=== PATIENT | female | born 1960 | race Caucasian/White ===

== ENCOUNTER 2025-07-31 12:24 | Outpatient (CLI) | payer MEDICARE, BC, SELFPAY ==
--- NOTE | 2025-07-31 06:00 | DI.RAD_ITS ---
Exam(s) XR PAIN CLINIC LUMBAR SP 2V EXAM: XR PAIN CLINIC LUMBAR SP 2V CLINICAL HISTORY: DX: Lumbar Spondylosis TECHNIQUE: 2D and realtime digital imaging was performed. CONTRAST MATERIAL: Refer to procedure report. COMPARISON: No exams were available for comparison FINDINGS: Fluoroscopy was provided for Dr. Mckeon during the performance of a lumbar medial branch block. Please refer to the procedure report for complete details. Ka,r=16.5 mGy IMPRESSION: RADIATION DOSE DELIVERED: 0.0 0.0 0
[2025-07-31 12:42] VITALS: BP 150/71; PULSE 83; RESP 18; TEMP 36.4; O2SAT 94
[2025-07-31 13:36] VITALS: BP 166/82; PULSE 79; RESP 16; O2SAT 94
[2025-07-31] MEDS: Bupivacaine 0.5% Pres-Free 10 ML VIAL IJ (13:39)
--- NOTE | 2025-07-31 13:40 | PDOC.PAIN_ITS ---
Date of service: 07/31/25 Time of Service: 13:40 Pain Managment Procedure Note Procedure Note Procedure Note: PROCEDURE NOTE Bilateral Lumbar Medial Branch Blocks Date of Service: July 31, 2025 Patient: Latonya Colón Provider: Yuri Mckeon DO, MPH Latonya Colón [facility] lumbar medial branch blocks. Pre-operative diagnosis: Lumbar Spondylosis without Myelopathy ICD-10 M47.816 Post-operative diagnosis: Same Pre-procedure pain: VAS= 7/10 COMMENTS: She was previously evaluated in our clinic. Her symptoms are unchanged Latonya was interviewed and the medical records were reviewed. There were no medical, pharmacologic, radiographic or other structural contraindications to attempting fluoroscopically guided local anesthetic lumbar medial branch blocks. Risks and potential side effects were discussed. I also discussed the potential benefit(s) of the procedure with Latonya, and voiced concerns were addressed. After Latonya was completely informed about the procedure, the printed consent form was signed. A standard time-out procedure was performed. Latonya was placed in the prone position on the fluoroscopy table. Automated blood pressure cuff and pulse oximeter were applied. The skin entry points for approaching the anatomic target points of the segmental medial branches of bilateral L3,L4,L5 were identified with fluoroscopy and marked. The skin at the target site area was thoroughly prepared with Chlorhexadine. The skin was then draped. Next, a 25 gauge 3.5 spinal needle was placed under fluoroscopic g uidance down on to the target point (the articular pillar) for each respective segmental medial branch. Position was confirmed in A/P and lateral views. Aspiration revealed no blood or clear fluid. Next, 0.25ml of omnipaque 240 was injected at each level. No contrast following a vascular or neural pattern was visualized under continuous fluoroscopy. Next, 0.25 ml of preservative-free 0.5% bupivicaine was injected at each level. There was no unusual discomfort expressed by Latonya. The needles were withdrawn without difficulty. (49 mls of Omnipaque was wasted) Latonya was observed and was without hemodynamic, neurologic, or allergic reactions. Fluoroscopic images were digitally archived. Provacative testing using the Modified Vee's facet loading test- Left side Right Side Directly before the block VAS (0-10) = 7/10 VAS (0-10) = 7/10 Five minutes after the block VAS (0-10) = 0/10 VAS (0-10) = 0/10 Percentage relief obtained with this diagnostic block 100% 100% Any improved physical functioning directly after the blocks? Able to move her low back with ease. Follow up plans and appointments were discussed with Latonya. Latonya was instructed to keep careful note of how the usual pain was modified by these injections. Specifically, to keep a pain diary for the next 4 hours using a numeric pain scale of 0-10 and report these results. Post procedure instruction was given as documented in the nursing documentation and having met discharge criteria, the patient was [facility]. Based on the medial branches blocked today, if they patient has adequate relief and we are able to proceed to radiofrequency ablation, the treatment should result in the denervation of the bilateral L4-L5 and L5-S1 facet joints. We would expect to denervate a total of 4 facets during the radiofrequency ablation. COMMENTS: No apparent complications. Post-procedure pain: VAS= 0/10 Latonya will call back with 0-4 hour post-procedure pain scores. I personally performed the entire procedure. YURI MCKEON DO, MPH ABPM&R-subspecialty board certification in Pain Medicine [facility] Coding Conscious Sedation used for procedure: No CPT Codes: LMBB (includes Fluoro) Lumbar/Sacral, 2nd lvl - 09003 ([id number] ~G) LMBB (includes Fluoro) Lumbar/Sacral, single lvl *BILATERAL* - [id number] ([id number]~G5) Additional Codes: Date of Service () Diagnoses: lumbosacral spondylosis without myelopathy
[2025-07-31] MEDS: Omnipaque 240 MG/ML 50 ML BTL IJ (13:42)
== END 2025-07-31 12:25 | disposition home or self-care (01) ==
LOC: PC 12:25
PROVIDERS: PCP Family Medicine; Visit Provider Preventive Medicine Occupational Medicine
DX: M54.50 Low back pain, unspecified (principal); M47.816 Spondylosis without myelopathy or radiculopathy, lumbar region
CPT/HCPCS: 64493; 64494; 72100; J0665; Q9967

== ENCOUNTER 2025-08-28 09:55 | Outpatient (CLI) | payer MEDICARE, BC, SELFPAY ==
[2025-08-28] VITALS (7 sets, daily range): BP systolic 143–187; BP diastolic 75–102; PULSE 64–74; RESP 13–24; TEMP 37.2; O2SAT 93–96
--- NOTE | 2025-08-28 10:42 | PDOC.PAIN ---
Date of service: 08/28/25 Time of Service: 10:42 Pain Managment Procedure Note Procedure Note Procedure Note: PROCEDURE NOTE Bilateral Lumbar Medial Branch Blocks #2 Date of Service: August 28, 2025 Patient: Latonya Colón Provider: Yuri Mckeon DO, MPH Latonya Colón has been referred to the [facility] for lumbar medial branch blocks. Pre-operative diagnosis: Lumbar Spondylosis without Myelopathy ICD-10 M47.816 Post-operative diagnosis: Same Pre-procedure pain: VAS= 10/10 COMMENTS: She did very well with her first blocks and her pain did return shortly there after. Pepe was interviewed and the medical records were reviewed. There were no medical, pharmacologic, radiographic or other structural contraindications to attempting fluoroscopically guided local anesthetic lumbar medial branch blocks. Risks and potential side effects were discussed. I also discussed the potential benefit(s) of the procedure with Latonya, and voiced concerns were addressed. After Latonya was completely informed about the procedure, the printed consent form was signed. A standard time-out procedure was performed. Latonya was placed in the prone position on the fluoroscopy table. Automated blood pressure cuff and pulse oximeter were applied. The skin entry points for approaching the anatomic target points of the segmental medial branches of bilateral L3,L4,L5 were identified with fluoroscopy and marked. The skin at the target site area was thoroughly prepared with Chlorhexadine. The skin was then draped. Next, a 25 gauge 3.5 spinal needle was placed under fluoroscopic guidance down on to the target point (the articular pillar) for each respective segmental medial branch. Position was confirmed in A/P and lateral views. Aspiration revealed no blood or clear fluid. Next, 0.25ml of omnipaque 240 was injected at each level. No contrast following a vascular or neural pattern was visualized under continuous fluoroscopy. Next, 0.25 ml of preservative-free 0.5% bupivicaine was injected at each level. There was no unusual discomfort expressed by Latonya. The needles were withdrawn without difficulty. (49 mls of Omnipaque was wasted) Latonya was observed and was without hemodynamic, neurologic, or allergic reactions.? Fluoroscopic images were digitally archived. Provacative testing using the Modified Vee's facet loading test- Left side Right Side Directly before the block VAS (0-10) = 10/10 VAS (0-10) = 10/10 Five minutes after the block VAS (0-10) = 2/10 VAS (0-10) = 2/10 Percentage relief obtained with this diagnostic block 80% 80% Any improved physical functioning directly after the blocks? Able to move her low back with minimal pain. Follow up plans and appointments were discussed with Latonya. Latonya was instructed to keep careful note of how the usual pain was modified by these injections. Specifically, to keep a pain diary for the next 4 hours using a numeric pain scale of 0-10 and report these results. Post procedure instruction was given as documented in the nursing documentation and having met discharge criteria, the patient was [facility] from the [facility]. Based on the medial branches blocked today, if they patient has adequate relief and we are able to proceed to radiofrequency ablation, the treatment should result in the denervation of the bilateral L4-L5 and L5-S1 facet joints. We would expect to denervate a total of 4 facets during the radiofrequency ablation. COMMENTS: No apparent complications. Post-procedure pain: VAS= 2/10 Latonya will call back with 0-4 hour post-procedure pain scores. I personally performed the entire procedure. YURI MCKEON DO, MPH ABPM&R-subspecialty board certification in Pain Medicine [facility] Coding Conscious Sedation used for procedure: No CPT Codes: LMBB (includes Fluoro) Lumbar/Sacral, 2nd lvl - 78862 ([id number] ~G) LMBB (includes Fluoro) Lumbar/Sacral, single lvl *BILATERAL* - [id number] ([id number]~G5) Additional Codes: Date of Service () Diagnoses: lumbar spondylosis without myelopathy
--- NOTE | 2025-08-28 10:43 | DI.RAD_ITS ---
Exam(s) XR PAIN CLINIC LUMBAR SP 2V EXAM: XR PAIN CLINIC LUMBAR SP 2V CLINICAL HISTORY: DX: Lumbar Spondylosis. TECHNIQUE: Fluoroscopy was provided for the referring physician for guidance with performing pain clinic injection procedure. COMPARISON: No exams were available for comparison FINDINGS: Please see procedure note for details. Fluoro time: 49.9 seconds RADIATION DOSE DELIVERED: gideon Stokes=14.1 mGy
[2025-08-28] MEDS: Nerve Block Tray 1 EACH MC (10:49)
[2025-08-28] MEDS: Bupivacaine 0.5% Pres-Free 10 ML VIAL IJ (10:49)
[2025-08-28] MEDS: Omnipaque 240 MG/ML 50 ML BTL IJ (10:49)
== END 2025-08-28 09:56 | disposition home or self-care (01) ==
LOC: PC 09:56
PROVIDERS: PCP Family Medicine; Visit Provider Preventive Medicine Occupational Medicine
DX: M54.50 Low back pain, unspecified (principal); M47.816 Spondylosis without myelopathy or radiculopathy, lumbar region
CPT/HCPCS: 64493; 64494; 72100; J0665; Q9967

== ENCOUNTER 2025-09-11 12:10 | Outpatient (CLI) | payer MEDICARE, BC, SELFPAY ==
[2025-09-11] VITALS (13 sets, daily range): BP systolic 165–206; BP diastolic 91–110; PULSE 61–78; RESP 10–20; TEMP 37; O2SAT 93–99
--- NOTE | 2025-09-11 06:00 | DI.RAD_ITS ---
Exam(s) XR PAIN CLINIC LUMBAR SP 2V EXAM: XR PAIN CLINIC LUMBAR SP 2V CLINICAL HISTORY: Dx: Lumbar Spondylosis TECHNIQUE: 2D and realtime digital imaging was performed. CONTRAST MATERIAL: Refer to procedure report. COMPARISON: No exams were available for comparison FINDINGS: Fluoroscopy was provided for Dr. Mckeon during the performance of a bilateral lumbar radiofrequency ablation. Please refer to the procedure report for complete details. Ka,r=18.3 mGy IMPRESSION: RADIATION DOSE DELIVERED: 0.0 0.0 0
[2025-09-11] MEDS: Midazolam 2 MG/2 ML VIAL IVP (13:10)
[2025-09-11] MEDS: fentaNYL 100 MCG/2 ML VIAL IJ (13:10)
[2025-09-11] MEDS: Nerve Block Tray 1 EACH MC (13:27)
[2025-09-11] MEDS: Lactated Ringers 500 ML 30 ML IV (13:28)
[2025-09-11] MEDS: Lidocaine 2% Multi-Dose 20 ML VIAL IJ (13:55)
[2025-09-11] MEDS: methylPREDNISolone ACETATE 40 MG/ML VIAL IJ (13:56)
[2025-09-11] MEDS: Bupivacaine 0.5% Pres-Free 10 ML VIAL IJ (13:56)
--- NOTE | 2025-09-11 14:07 | PDOC.PAIN ---
Date of service: 09/11/25 Time of Service: 14:07 Pain Managment Procedure Note Procedure Note Procedure Note: PROCEDURE NOTE BILATERAL LUMBAR RADIOFREQUENCY ABLATION Date of Service: September 11, 2025 Patient:Latonya Parham? Provider:? Yuri Mckeon DO, MPH Latonya Colón has been [facility] to the [facility] for Bilateral Lumbar Radiofrequency Ablation with the [employer] Machine.? Pre Operative Diagnosis: Lumbosacral Spondylosis without Myelopathy ICD-10 M47.816 Post Operative Diagnosis: Same Pre procedure pain; VAS= 10/10 Comments: Great relief with the LMBBs X 2 PROCEDURE: Radiofrequency Ablation of medial branches - bilateral L3, L4, L5 and lateral branches of bilateral S1. Latonya?was interviewed and the medical record was reviewed.? There were no medical, pharmacologic, radiographic or other structural contraindications to attempting fluoroscopically guided BILATERAL Lumbar Radiofrequency Ablation.?Risks and expected side effects as well as potential benefit of the procedure were reviewed with Latonya, and the patient's voiced concerns were addressed.? The printed consent form was signed.? Standard time-out procedure was performed. Latonya was brought into the fluoroscopy suite and positioned into the prone position on the fluoroscopy table and allowed to adjust to a position of comfort. A grounding pad was placed on the left abdomen. The sterile field was prepared using chlorhexidine preparation of the skin and sterile draping. Local anesthesia superficial and deep was provided by local infiltration of 2% lidocaine. A 17g 100 mm radiofrequency introducer needle was placed to the planned anatomic targets guided with intermittent fluoroscopy with a perpendicular approach to terminally place at the junction of the superior articular process and the transverse process of the bilateral L4, L5, the base of the sacral ala on the bilateral for the L5 medial branch nerve and the area between base of the sacral ala to the S1 foramen bilaterally. The stylets were removed and radiofrequency probes with a 4mm active tip were then inserted. Needle tip position of the probes was verified in the AP, oblique, and lateral views. At each site, the medial branch nerve was stimulated at 2 Hz to a maximum 1-2 volts determined to finalize safe needle and electrode placement. The patient was awake and responsive during this portion of the procedure. Each target was anesthetized with 1-2 mL of 2 % Lidocaine for anesthesia for lesioning and then each target was lesioned at 80 degrees Celsius for 2 minutes and 30 seconds. Tissue impedances were noted to be between 250 and 500 Ohms. I then injected 1/4 cc of Depomedrol followed by 1/2 cc of Bupivacaine (0.5%) at each segmental sensory nerve. There was no unusual discomfort expressed by Latonya. The needles were withdrawn without difficulty and bandages placed over the needle placement sites, the patient was observed and was without hemodynamic, neurologic, or allergic reactions. Fluoroscopic images were digitally archived. POST PROCEDURE EVALUATION: IMPRESSION: 1. Summary of procedure. Medication given is documented in the MAR. 2. Follow up plan: Latonya to contact [facility] as needed.?This procedure may be repeated if the patient achieves at least 50% improvement in pain/function for at least 6 months. 3. Estimated Blood Loss: <5 mls 4. Fluoroscopy time: Documented in the EMR. Follow up plans and appointments were discussed with the Latonya. Post procedure instruction was given as documented in nursing documentation and having met discharge criteria, Latonya was discharged from the [facility]. This advanced procedure uses cooled radiofrequency energy to safely target the sensory nerves responsible for sending pain signals.1 A radiofrequency generator transmits a small current of Radiofrequency energy through an insulated electrode, or probe, placed within tissue. Ionic heating, produced by the friction of charged molecules, thermally deactivates the nerves responsible for sending pain signals to the brain. Radiofrequency energy heats and cools the tissue at the site of pain. Unlike other Radiofrequency procedures, Coolief circulates water through the device while heating nervous tissue to create a larger treatment area, increasing the opportunity to help with pain. This combination targets the pain-transmitting nerves without excessive heating, leading to pain relief. COMMENTS: No apparent complications. Post-procedure pain: VAS= 5/10. I personally completed the entire procedure. YURI MCKEON DO, MPH ABPM&R - Subspecialty board certification in Pain Medicine [facility] Coding Conscious Sedation used for procedure: Yes CPT Codes: Single Facet Joint, Lumbar/Sacral *BILATERAL* - [id number] ([id number]~G) Single Facet Joint, Lumbar/Sacral cool each add'l - 49930B ([id number]~G) Additional Codes: Date of Service () Diagnoses: Lumbosacral spondylosis without myelopathy
== END 2025-09-11 12:11 | disposition home or self-care (01) ==
LOC: PC 12:10
PROVIDERS: PCP Family Medicine; Visit Provider Preventive Medicine Occupational Medicine
DX: M54.50 Low back pain, unspecified (principal); M47.816 Spondylosis without myelopathy or radiculopathy, lumbar region
CPT/HCPCS: 64635; 64636; 72100; J0665; J1010; J2003; J2250; J3010